=== PATIENT | female | born 1930 | race Caucasian/White ===

== ENCOUNTER 2016-03-12 17:53 | Inpatient (IN) | payer MEDICARE, BC ==
[~2016-03-12] VITALS: Ht 160 cm; Wt 59.0 kg
[~2016-03-12 17:53] MED LIST: ALEN70TA39 PO; ASPI81TA45 PO; CART120C2 PO; DOCU240C PO; ENAL5TAB PO; GLUCTAB PO; GLYB1TAB51 PO; HYDR-2768 PO; IBUP-238 PO; LORTA5 PO; NITR50CA27 PO; SIMV10 PO
[2016-03-12 17:59] VITALS: BP 196/98; PULSE 75; RESP 18; TEMP 98.4; O2SAT 97
[2016-03-12] MEDS ORDERED: ZOCO10TA PO (18:08)
[2016-03-12] MEDS ORDERED: METF500T PO (18:08)
[2016-03-12] MEDS ORDERED: IBUP800T23 PO (18:08)
[2016-03-12] MEDS ORDERED: AMIL5 PO (18:08)
[2016-03-12] MEDS ORDERED: ENAL5TAB PO (18:08)
[2016-03-12] MEDS ORDERED: ALEN1TAB48 PO (18:08)
[2016-03-12] MEDS ORDERED: TRAM50TA PO (18:08)
[2016-03-12] MEDS ORDERED: CART120C PO (18:08)
[2016-03-12] MEDS ORDERED: [UNRECOGNIZED DRUG - OTHER] (18:08)
[2016-03-12] MEDS ORDERED: BACL10TA PO (18:08)
[2016-03-12] MEDS ORDERED: OXYC-259 PO (18:08)
[2016-03-12] MEDS ORDERED: HYDR-4107 PO (18:08)
[2016-03-12] MEDS ORDERED: HYDR25TA5 PO (18:08)
[2016-03-12] MEDS ORDERED: GLYB5TAB3 PO (18:08)
[2016-03-12 18:09] VITALS: O2SAT 97
[2016-03-12] MEDS ORDERED: SODIUM CHLORIDE 0.9% FLUSH 5 ML FLUSH IVF PRN (18:15)
--- NOTE | 2016-03-12 18:17 | PD ---
HPI Chief Complaint: Fall Time Seen by Provider: 18:09 Travel History International Travel<30 days: No Contact w/Intl Traveler<30days: No Traveled to known affect area: No History of Present Illness HPI 85 year-old female presents to the emergency room via ambulance for evaluation of left hip pain. Patient was walking down a ramp at her garage and she tripped her cat and fell landing directly on her left hip before falling backwards onto her upper back. She reports immediate pain. When the ambulance came, she was lying on her back, crying, with both legs flexed. She received 8 mg of morphine en route. She protects x-ray shooting pain in her left groin radiating to the buttocks. Worse with any motion. She denies numbness or tingling but states the left lower extremity feels different than the right. Denies hitting her left consciousness. She also has left-sided chest wall pain from where she struck her chest on the concrete floor. Orthopedic surgeon as the Dre trujillo. She has history of osteoporosis, hypertension, diabetes, and hyperlipidemia. PFSH Past Medical History Cancer: No Cardiovascular Problems: No Diabetes: Yes (TYPE II) Patient Takes Glucophage: No Endocrine: Yes Gastrointestinal Disorders: Yes (DISTANT HIXTORY OF ULCER) Genitourinary: No Hepatitis: No Hiatal Hernia: No Hypertension: Yes Immune Disorder: No Medical other: No Musculoskeletal: Yes (ARTHRITIS, BACK PROBLEMS, HAIRLINE VERTEBRAL FRACTURES) Neurologic: No Psychiatric: No Reproductive: No Respiratory: No Thyroid Disease: No ?: Not Past Surgical History Abdominal Surgery: Yes (HYSTERECTOMY) AICD: No Cardiac Surgery: No Ear Surgery: No Endocrine Surgery: No Eye Surgery: No Genitourinary Surgery: Yes (BLADDER SUPPENSION X2 ) Gynecologic Surgery: Yes (CESEARIAN, D & C X 2) Joint Replacement: No Neurologic Surgery: No Oral Surgery: Yes (TONSILLECTOMY ) Pacemaker: No Thoracic Surgery: No Other Surgery: Yes Social History Alcohol Use: No Tobacco Use: No Substance Use: No Allergies-Medications (Allergen,Severity, Reaction): Coded Allergies: Sulfa (Verified Allergy, Severe, Hives, 06/18/13) ITCHING AND SWELLING Lortab (Verified Allergy, Intermediate, Nausea/Vomiting, 01/30/13) PT STATES SHE HAS TAKEN THIS WITHOUT PROBLEMS. STATES IS NOT ALLERGIC Oxycontin (Verified Allergy, Intermediate, Nausea/Vomiting, 06/18/13) Reported Meds & Prescriptions Reported Meds & Active Scripts Active Reported [surolax] Glyburide 5 Mg Tab 5 Mg PO DAILY Take with meals at the same time each day Tramadol (Tramadol HCl) 50 Mg Tab 50 Mg PO Q4H PRN Amiloride (Amiloride HCl) 5 Mg Tab 5 Mg PO DAILY Baclofen 10 Mg Tab 10 Mg PO Q8HR PRN Alendronate (Alendronate Sodium) 70 Mg Tab 70 Mg PO Q7D Metformin (Metformin HCl) 500 Mg Tab 500 Mg PO DAILY With a meal Ibuprofen 800 Mg Tab 800 Mg PO Q6HR PRN Hydrochlorothiazide 25 Mg Tab 25 Mg PO DAILY Zocor (Simvastatin) 10 Mg Tab 10 Mg PO DAILY Cartia Xt (Diltiazem ER 24 HR) 120 Mg Caper 120 Mg PO DAILY Enalapril (Enalapril Maleate) 5 Mg Tab 5 Mg PO DAILY Hydrocodone-Acetaminophen 5-300 Mg Tab 1 Tab PO Q4H PRN Oxycontin (Oxycodone HCl) 10 Mg Tab 10 Mg PO Q12HR Review of Systems Except as stated in HPI: all other systems reviewed are Neg Physical Exam Narrative GENERAL: Well-developed, well-nourished female in no acute distress. Afebrile. Crying in pain. SKIN: Warm and dry. No erythema or ecchymosis. HEAD: Atraumatic. Normocephalic. No chahal sign or raccoon eyes. EYES: PERRL, EOMI, no discharge or injection. No scleral icterus. NECK: Trachea midline. No JVD. No midline tenderness. Full range of motion. CARDIOVASCULAR: Regular rate and rhythm. No murmur appreciated. RESPIRATORY: No accessory muscle use. Clear to auscultation. Breath sounds equal bilaterally. No crackles, rales, wheezes, or rhonchi. EXTREMITY: Left lower extremity is neither shortened nor rotated. 1+ dorsalis pedis pulse. Very limited range of motion of the left hip secondary to pain. No obvious edema. Patient has full range of motion of the knee and left ankle, knee, and foot. Less than 2 second capillary refill distally. Distal sensation intact. PSYCHIATRIC: Appropriate mood and affect; insight and judgment normal. Data Data Last Documented VS Vital Signs Date Time Temp Pulse Resp B/P Pulse Ox O2 Delivery O2 Flow Rate FiO2 03/12/16 19:59 89 17 97 Room Air 03/12/16 19:59 142/89 03/12/16 18:09 2 03/12/16 17:59 98.4 Orders Complete Blood Count With Diff (03/12/16 18:06) Comprehensive Metabolic Panel (03/12/16 18:06) Prothrombin Time / Inr (Pt) (03/12/16 18:06) Act Partial Throm Time (Ptt) (03/12/16 18:06) Chest, Single Ap (03/12/16 18:06) Hip, Uni(Ap&Lat) W Ap Pelvis (03/12/16 18:06) Iv Access Insert/Monitor (03/12/16 18:06) Oximetry (03/12/16 18:06) Ecg Monitoring (03/12/16 18:06) Sodium Chloride 0.9% Flush (Ns Flush) (03/12/16 18:15) Morphine Inj (Morphine Inj) (03/12/16 20:00) Ketorolac Inj (Toradol Inj) (03/12/16 21:30) Admit Order (Ed Use Only) (03/12/16 21:20) Consult Orthopedic (03/12/16 ) Labs Laboratory Tests Test 03/12/16 18:11 White Blood Count 7.5 TH/MM3 Red Blood Count 4.34 MIL/MM3 Hemoglobin 13.5 GM/DL Hematocrit 38.1 % Mean Corpuscular Volume 87.9 FL Mean Corpuscular Hemoglobin 31.2 PG Mean Corpuscular Hemoglobin 35.5 % Concent Red Cell Distribution Width 12.9 % Platelet Count 275 TH/MM3 Mean Platelet Volume 7.8 FL Neutrophils (%) (Auto) 66.5 % Lymphocytes (%) (Auto) 18.5 % Monocytes (%) (Auto) 8.6 % Eosinophils (%) (Auto) 5.6 % Basophils (%) (Auto) 0.8 % Neutrophils # (Auto) 5.0 TH/MM3 Lymphocytes # (Auto) 1.4 TH/MM3 Monocytes # (Auto) 0.7 TH/MM3 Eosinophils # (Auto) 0.4 TH/MM3 Basophils # (Auto) 0.1 TH/MM3 CBC Comment DIFF FINAL Differential Comment Prothrombin Time 10.8 SEC Prothromb Time International 1.0 RATIO Ratio Activated Partial 25.2 SEC Thromboplast Time Sodium Level 139 MEQ/L Potassium Level 4.3 MEQ/L Chloride Level 101 MEQ/L Carbon Dioxide Level 29.2 MEQ/L Anion Gap 9 MEQ/L Blood Urea Nitrogen 17 MG/DL Creatinine 0.96 MG/DL Estimat Glomerular Filtration 56 ML/MIN Rate Random Glucose 195 MG/DL Calcium Level 9.0 MG/DL Total Bilirubin 0.3 MG/DL Aspartate Amino Transf 21 U/L (AST/SGOT) Alanine Aminotransferase 25 U/L (ALT/SGPT) Alkaline Phosphatase 113 U/L Total Protein 6.7 GM/DL Albumin 3.7 GM/DL [facility] Medical Decision Making Medical Screen Exam Complete: Yes Emergency Medical Condition: Yes Medical Record Reviewed: Yes Differential Diagnosis Hip fracture versus contusion versus abrasion versus muscle spasm Narrative Course 85-year-old female presents to the emergency room for evaluation of left anterior hip pain after trip and fall just prior to arrival. Patient slipped on a ramp and landed directly on her left hip. She reports immediate pain and difficulty ambulating. Reports paresthesias in the left lower extremity. Left lower extremity is neurovascularly intact with 1+ dorsalis pedis pulse and less than 2 second capillary refill distally. Distal sensation intact and patient has full range of motion of the ankle, knee, and foot. Left lower extremity is neither externally rotated nor shortened. She was given 8 mg morphine on ambulance and 4 mg morphine in the emergency room. Pain went from 10/10 down to 5/10. IV access established and basic labs obtained. CBC, CMP, and coags unremarkable. Chest x-ray is negative. X-ray of the left hip shows deformity of the superior pubic ramus which could represent an acute or old fracture. Given patient's mechanism of injury and focal tenderness, this is acute. I attempted to ambulate the patient but she was in too much pain. She was given a dose of Toradol and ice. I spoke to the orthopedist surgeon agricultural equipment salesperson, Dr. Montoya, who agrees to consultation. Patient will be admitted for physical therapy and orthopedic consultation. I spoke to the hospitalist on-call, Dr. Burkett, who agrees to admit this patient to her service. Physician Communication Physician Communication I spoke to Dr. Aguillon concerning patient's fractured pubic ramus. He agrees to consultation. I spoke to Dr. Mazal who agrees to accept patient to her service. Diagnosis Primary Impression: Fracture of left superior pubic ramus Qualified Code: S32.512A - Fracture of left superior pubic ramus, closed, initial encounter Condition: Stable Rebecca Corado Mar 12, 2016 18:16
[2016-03-12 18:25] LABS: BASOPHIL # 0.1 TH/MM3 (0-0.2); BASOPHIL % 0.8 % (0.0-2.0); EOSINOPHIL # 0.4 TH/MM3 (0-0.4); EOSINOPHIL % 5.6 % (0.0-4.0); HEMATOCRIT 38.1 % (35.0-46.0); HEMO FLAGS DIFF FINAL; LYMPH % 18.5 % (9.0-44.0); LYMPHOCYTE # 1.4 TH/MM3 (1.0-4.8); MEAN CELL VOLUME 87.9 FL (80.0-100.0); MEAN CORPUSCULAR HEMOGLOBIN 31.2 PG (27.0-34.0); MEAN CORPUSCULAR HGB CONC 35.5 % (32.0-36.0); MONO % 8.6 % (0.0-8.0); NEUT % 66.5 % (16.0-70.0); PLATELET COUNT 275 TH/MM3 (150-450); RED BLOOD COUNT 4.34 MIL/MM3 (4.00-5.30); RED CELL DISTRIBUTION WIDTH 12.9 % (11.6-17.2); WHITE BLOOD COUNT 7.5 TH/MM3 (4.0-11.0)
[2016-03-12 18:34] LABS: APTT (PATIENT) 25.2 SEC (24.3-30.1); PROTHROMBIN TIME - PATIENT 10.8 SEC (9.8-11.6)
[2016-03-12 18:46] LABS: ALKALINE PHOSPHATASE 113 U/L (45-117); ALT (GPT) 25 U/L (10-53); ANION GAP 9 MEQ/L (5-15); AST (GOT) 21 U/L (15-37); BICARBONATE 29.2 MEQ/L (21.0-32.0); BLOOD UREA NITROGEN 17 MG/DL (7-18); CHLORIDE 101 MEQ/L (98-107); GLOMERULAR FILTRATION RATE 56 ML/MIN (>89); POTASSIUM 4.3 MEQ/L (3.5-5.1); SODIUM (NA) 139 MEQ/L (136-145); TOTAL BILIRUBIN ADULT 0.3 MG/DL (0.2-1.0)
[2016-03-12 19:59] VITALS: BP 142/89; PULSE 86; RESP 17; O2SAT 99
[2016-03-12] MEDS ORDERED: MORPHINE SULFATE 4 MG/ML INJ IV PUSH ONE (20:00)
--- NOTE | 2016-03-12 20:19 | RADRPT ---
EXAM DATE/TIME: 03/12/2016 19:41 [facility] COMPARISON: No previous studies available for comparison. INDICATIONS : Left hip pain, fall. MEDICAL HISTORY : None. SURGICAL HISTORY : None. ENCOUNTER: Initial ACUITY: 1 day PAIN SCORE: 10/10 LOCATION: Left proximal hip FINDINGS: This lateral film in the superior pubic ramus. This could represent acute or old fracture. A fracture of the left hip. Moderate osteoarthritis left hip. CONCLUSION: Deformity left superior pubic ramus could represent an acute or old fracture. No fracture at the left hip. Solo Duvall MD on March 12, 2016 at 20:11 Board Certified Radiologist. This report was verified electronically.
--- NOTE | 2016-03-12 21:06 | RADRPT ---
EXAM DATE/TIME: 03/12/2016 19:39 [facility] COMPARISON: No previous studies available for comparison. INDICATIONS : Chest pain. MEDICAL HISTORY : None. SURGICAL HISTORY : None. ENCOUNTER: Initial ACUITY: 1 day PAIN SCORE: 7/10 LOCATION: Left upper chest FINDINGS: A single view of the chest demonstrates the lungs to be symmetrically aerated without evidence of mas s, infiltrate or effusion. The cardiomediastinal contours are unremarkable. Osseous structures are intact. CONCLUSION: No acute disease. Solo Duvall MD on March 12, 2016 at 21:05 Board Certified Radiologist. This report was verified electronically.
[2016-03-12] MEDS ORDERED: KETOROLAC TROMETHAMINE 30 MG/ML (IVP) VIAL IV PUSH ONE (21:30)
[2016-03-12] MEDS ORDERED: DEXTROSE 50% IN WATER 50 ML VIAL(D50) IV PUSH PRN (21:30)
[2016-03-12] MEDS ORDERED: ACETAMINOPHEN 325 MG TAB PO PRN (21:30)
[2016-03-12] MEDS ORDERED: MORPHINE SULFATE 4 MG/ML INJ IV PRN (21:30)
[2016-03-12] MEDS ORDERED: BACLOFEN 10 MG TAB PO PRN (21:30)
[2016-03-12] MEDS ORDERED: BISACODYL 10 MG SUPP PR PRN (21:30)
[2016-03-12] MEDS ORDERED: GLUCAGON 1 MG/ML VIAL OTHER PRN (21:30)
[2016-03-12] MEDS ORDERED: SODIUM CHLORIDE 0.9% FLUSH 5 ML FLUSH FLUSH PRN (21:30)
--- NOTE | 2016-03-12 21:40 | HHI.HP ---
[facility] Zayda Gray DO Admission Diagnosis left pubic ramus fracture Diagnoses: (1) Fracture of left superior pubic ramus Diagnosis: Principal (2) Intractable pain Diagnosis: Principal (3) HTN (hypertension) Diagnosis: Principal (4) DM (diabetes mellitus) Diagnosis: Principal Travel History International Travel<30 Days: No Contact w/Intl Traveler <30 Da: No Traveled to Known Affected Are: No History of Present Illness This is an 85-year-old female with a PMH of HTN, Osteoporosis and DM who is brought to the ER by EMS secondary to complaints of severe left hip and back pain following a fall. State she had closed her garage door and turned to walk up the ramp to her house when she lost her balance and fell on her left hip. No head trauma or LOC. On arrival, BP 196/98, HR 75, O2 sat 97% on RA, Afebrile. Currently BP 131/76, HR 78. CBC unremarkable. Chemistry essentially unremarkable except for GFR 56. CXR with no acute findings. Pelvic X-ray with deformity of the left superior pubic ramus, possibly acute or old fracture, no hip fracture. Injury non-op. Pt follows maykel Aguillon as outpatient, consulted by ER physician, will evaluate in am. Pt unable to ambulate at this time due to significant pain. Review of Systems Other ROS: 14 point review of systems otherwise negative. Past Family Social History Past Medical History PMH: HTN, Osteoporosis and DM Past Surgical History PAST SURGICAL HISTORY: Hysterectomy, Bladder Suspension, , Tonsillectomy Allergies: Coded Allergies: Sulfa (Verified Allergy, Severe, Hives, 06/18/13) ITCHING AND SWELLING Lortab (Verified Allergy, Intermediate, Nausea/Vomiting, 01/30/13) PT STATES SHE HAS TAKEN THIS WITHOUT PROBLEMS. STATES IS NOT ALLERGIC Oxycontin (Verified Allergy, Intermediate, Nausea/Vomiting, 06/18/13) Family History PAST FAMILY HISTORY: Reviewed. No h/o DM or CAD Social History PAST SOCIAL HISTORY: Negative for alcohol, tobacco or drugs. Physical Exam Vital Signs Vital Signs Date Time Temp Pulse Resp B/P Pulse Ox O2 Delivery O2 Flow Rate FiO2 03/12/16 19:59 89 17 97 Room Air 03/12/16 19:59 86 17 142/89 99 Room Air 03/12/16 18:09 97 Nasal Cannula 2 03/12/16 18:09 90 18 98 Room Air 03/12/16 17:59 98.4 75 18 196/98 97 Physical Exam PE: GENERAL: Elderly white female in no acute distress. at bedside. HEENT: PERRLA, EOMI. No scleral icterus or conjunctival pallor. No lid lag or facial droop. CARDIOVASCULAR: Regular rate and rhythm. No obvious murmurs to auscultation. No chest tenderness to palpation. RESPIRATORY: No obvious rhonchi or wheezing. Clear to auscultation. Breath sounds equal bilaterally. GASTROINTESTINAL: Abdomen soft, non-tender, nondistended. BS normal. MUSCULOSKELETAL: Extremities without clubbing, cyanosis, or edema. No obvious deformities. Left hip/groin tenderness to palpation. Decreased ROM due to injury. Pulses intact. NEUROLOGICAL: Awake, alert and oriented x4. No focal neurologic deficits. Moving both upper and lower extremities spontaneously. Laboratory Laboratory Tests Test 03/12/16 18:11 White Blood Count 7.5 Red Blood Count 4.34 Hemoglobin 13.5 Hematocrit 38.1 Mean Corpuscular Volume 87.9 Mean Corpuscular Hemoglobin 31.2 Mean Corpuscular Hemoglobin 35.5 Concent Red Cell Distribution Width 12.9 Platelet Count 275 Mean Platelet Volume 7.8 Neutrophils (%) (Auto) 66.5 Lymphocytes (%) (Auto) 18.5 Monocytes (%) (Auto) 8.6 Eosinophils (%) (Auto) 5.6 Basophils (%) (Auto) 0.8 Neutrophils # (Auto) 5.0 Lymphocytes # (Auto) 1.4 Monocytes # (Auto) 0.7 Eosinophils # (Auto) 0.4 Basophils # (Auto) 0.1 CBC Comment DIFF FINAL Differential Comment Prothrombin Time 10.8 Prothromb Time International 1.0 Ratio Activated Partial 25.2 Thromboplast Time Sodium Level 139 Potassium Level 4.3 Chloride Level 101 Carbon Dioxide Level 29.2 Anion Gap 9 Blood Urea Nitrogen 17 Creatinine 0.96 Estimat Glomerular Filtration 56 Rate Random Glucose 195 Calcium Level 9.0 Total Bilirubin 0.3 Aspartate Amino Transf 21 (AST/SGOT) Alanine Aminotransferase 25 (ALT/SGPT) Alkaline Phosphatase 113 Total Protein 6.7 Albumin 3.7 Result Diagram: 03/12/16181003/12/161810 Assessment and Plan Problem List: (1) Fracture of left superior pubic ramus ICD Code: S32.512A Status: Acute (2) Intractable pain ICD Code: R52 Status: Acute (3) HTN (hypertension) ICD Code: I10 Status: Acute (4) DM (diabetes mellitus) ICD Code: E11.9 Status: Acute Assessment and Plan A/P: 1. Pelvic Fx: s/p mechanical trip and fall, no LOC or head trauma, Pelvic X- ray w/ deformity of left superior pubic ramus, possibly acute or old fracture, no fracture of left hip, images reviewed by me. Follows w/ Dr. Aguillon as outpatient, consult placed by ER physician, will eval in am. Injury Non-op. Pain control, PT for eval/tx. 2. Intractable Pain: c/o severe left hip/groin pain following fall, minimally improved at this time, significant difficulty w/ ambulation due to pain. Will admit for pain control. PT for eval/tx as above. 3. HTN: BP on arrival 190's systolic, likely compounded by pain. BP currently 131/76, HR 78. Will monitor. 4. DM: Sliding scale w/ Accu-Cheks. Resume home Metformin 5. DVT Prophylaxis: SCD/Teds. 6. Social work for d/c planning as needed. 7. Case discussed w/ ER physician at length. Problem Qualifiers (1) Fracture of left superior pubic ramus: Qualified Code: S32.512A - Fracture of left superior pubic ramus, closed, initial encounter Caridad Burkett MD Mar 12, 2016 21:40
[2016-03-12 22:19] VITALS: BP 131/76; PULSE 78; RESP 15; O2SAT 96
[2016-03-13 00:40] VITALS: BP 160/83; PULSE 94; RESP 18; TEMP 96.8; O2SAT 97
[2016-03-13 04:35] VITALS: BP 123/62; PULSE 83; RESP 17; TEMP 97.9; O2SAT 95
[2016-03-13 05:33] LABS: AUTOMATED NEUTROPHIL # 6.8 TH/MM3 (1.8-7.7); BASOPHIL % 0.6 % (0.0-2.0); EOSINOPHIL # 0.1 TH/MM3 (0-0.4); EOSINOPHIL % 1.6 % (0.0-4.0); HEMATOCRIT 36.3 % (35.0-46.0); HEMO FLAGS DIFF FINAL; LYMPH % 7.4 % (9.0-44.0); LYMPHOCYTE # 0.6 TH/MM3 (1.0-4.8); MEAN CORPUSCULAR HEMOGLOBIN 31.3 PG (27.0-34.0); MEAN CORPUSCULAR HGB CONC 35.1 % (32.0-36.0); MONO % 5.6 % (0.0-8.0); NEUT % 84.8 % (16.0-70.0); PLATELET COUNT 255 TH/MM3 (150-450); RED BLOOD COUNT 4.07 MIL/MM3 (4.00-5.30); RED CELL DISTRIBUTION WIDTH 12.9 % (11.6-17.2)
[2016-03-13 06:03] LABS: ALT (GPT) 23 U/L (10-53); ANION GAP 6 MEQ/L (5-15); AST (GOT) 15 U/L (15-37); BICARBONATE 29.7 MEQ/L (21.0-32.0); BLOOD UREA NITROGEN 20 MG/DL (7-18); CHLORIDE 103 MEQ/L (98-107); GLOMERULAR FILTRATION RATE 64 ML/MIN (>89); POTASSIUM 4.7 MEQ/L (3.5-5.1); SODIUM (NA) 139 MEQ/L (136-145)
[2016-03-13 06:05] LABS: ALKALINE PHOSPHATASE 80 U/L (45-117); TOTAL BILIRUBIN ADULT 0.4 MG/DL (0.2-1.0)
[2016-03-13] MEDS: ACETAMINOPHEN/HYDROcodone 325 MG/5 MG TAB PO PRN ×3 (07:29→20:09)
[2016-03-13] MEDS: INSULIN ASPART SUPPLEMENTAL SCALE SQ SCH ×4 (07:29→20:18)
[2016-03-13 08:00] VITALS: BP 123/60; PULSE 75; RESP 16; TEMP 96.6; O2SAT 95
[2016-03-13] MEDS: glyBURIDE 5 MG TAB PO SCH (08:42)
[2016-03-13] MEDS: DILTIAZEM-CD 120 MG CAP ER PO SCH (08:42)
[2016-03-13] MEDS: ENALAPRIL MALEATE 5 MG TAB PO SCH (08:42)
[2016-03-13] MEDS: HYDROCHLOROTHIAZIDE 25 MG TAB PO SCH (08:43)
[2016-03-13] MEDS: aMILoride HCL 5 MG TAB PO SCH (08:43)
[2016-03-13] MEDS: PRAVASTATIN SOD 20 MG TAB PO SCH (08:43)
[2016-03-13] MEDS: SODIUM CHLORIDE 0.9% FLUSH 5 ML FLUSH FLUSH SCH ×2 (08:45→20:09)
[2016-03-13] MEDS ORDERED: metFORMIN HCL 500 MG TAB PO SCH (09:00)
[2016-03-13 12:00] VITALS: BP 105/53; PULSE 72; RESP 17; TEMP 96.2; O2SAT 94
--- NOTE | 2016-03-13 13:05 | HHI.PR ---
Subjective Remarks Laying in bed comfortably, discussed with her and her She still has pain, no nausea or vomiting no fever or chills Also discussed with disease case manager rn, patient qualify for inpatient base on her need for pain medication and her pelvic fracture, and she definitely will need rehabilitation at discharge Objective Vitals Vital Signs Date Time Temp Pulse Resp B/P Pulse Ox O2 Delivery O2 Flow Rate FiO2 03/13/16 08:00 96.6 75 16 123/60 95 03/13/16 04:35 97.9 83 17 123/62 95 03/13/16 00:40 96.8 94 18 160/83 97 03/12/16 22:22 15 03/12/16 22:19 78 15 131/76 96 Room Air 03/12/16 19:59 89 17 97 Room Air 03/12/16 19:59 86 17 142/89 99 Room Air 03/12/16 18:09 97 Nasal Cannula 2 03/12/16 18:09 90 18 98 Room Air 03/12/16 17:59 98.4 75 18 196/98 97 I/O 03/12/16 03/12/16 03/12/16 03/13/16 03/13/16 03/13/16 07:00 15:00 23:00 07:00 15:00 23:00 Intake Total 120 ml Output Total 100 ml Balance -100 ml 120 ml Intake Oral 120 ml Output Urine Total 100 ml # Voids 1 3 # Bowel Movements 0 Result Diagram: 03/13/16 0437 03/13/16 0437 Imaging Last Impressions Hip and Pelvis X-Ray 03/12/161805 Signed Impressions: Service Date/Time: Saturday, March 12, 2016 19:41 - CONCLUSION: Deformity left superior pubic ramus could represent an acute or old fracture. No fracture at the left hip. Solo Duvall MD Chest X-Ray 03/12/161805 Signed Impressions: Service Date/Time: Saturday, March 12, 2016 19:39 - CONCLUSION: No acute disease. Solo Duvall MD Objective Remarks GENERAL: This is a well-nourished, well-developed patient, in no apparent distress. SKIN: No rashes, warm and dry HEAD: Atraumatic. Normocephalic. EYES: Pupils equal round and reactive. Extraocular motions intact. No scleral icterus. ENT: Nose without bleeding, or drainage, Airway patent. NECK: Trachea midline. Supple CARDIOVASCULAR: Regular rate and rhythm without murmurs, gallops, or rubs. RESPIRATORY: Fair air entry bilaterally. No wheezes, rales, or rhonchi. GASTROINTESTINAL: Abdomen soft, non-tender, nondistended. Positive bowel sounds MUSCULOSKELETAL: Extremities without clubbing, cyanosis, or edema. Pedal pulses appreciated NEUROLOGICAL: Awake and alert. Moves all extremity. Normal speech.no focal neurological deficit A/P Problem List: (1) Fracture of left superior pubic ramus ICD Code: S32.512A Status: Acute (2) Intractable pain ICD Code: R52 Status: Acute (3) HTN (hypertension) ICD Code: I10 Status: Acute (4) DM (diabetes mellitus) ICD Code: E11.9 Status: Acute Assessment and Plan - Pelvic Fx: s/p mechanical trip and fall, no LOC or head trauma, Pelvic X- ray w/ deformity of left superior pubic ramus, possibly acute or old fracture, no fracture of left hip, images reviewed by me. Follows w/ Dr. Aguillon as outpatient, awaiting ortho consult most likely nonoperable, continue pain control, PT for eval/tx. - Intractable Pain: c/o severe left hip/groin pain following fall, minimally improved at this time, significant difficulty w/ ambulation due to pain. - HTN: BP on arrival 190's systolic, likely compounded by pain. BP currently 131/76, HR 78. Will monitor. - DM: Sliding scale w/ Accu-Cheks. Hold Metformin - DVT Prophylaxis: SCD/Teds. - Social work for d/c planning as needed. Change to inpatient admission vasa on discussion with disease case manager rn, patient is qualified Problem Qualifiers (1) Fracture of left superior pubic ramus: Qualified Code: S32.512A - Fracture of left superior pubic ramus, closed, initial encounter Shelly Saxena MD Mar 13, 2016 13:05
[2016-03-13] MEDS: ONDANSETRON HCL 4 MG/2 ML VIAL IVP PRN ×2 (15:31)
[2016-03-13 16:00] VITALS: BP 121/57; PULSE 73; RESP 17; TEMP 96.6; O2SAT 94
[2016-03-13 20:00] VITALS: BP 104/50; PULSE 89; RESP 17; TEMP 98.7; O2SAT 96
[2016-03-14 00:15] VITALS: BP 96/52; PULSE 83; RESP 17; TEMP 98.8; O2SAT 95
[2016-03-14] MEDS: ONDANSETRON HCL 4 MG/2 ML VIAL IVP PRN ×2 (02:00→12:01)
[2016-03-14 05:15] VITALS: BP 104/56; PULSE 76; RESP 17; TEMP 98.1; O2SAT 94
[2016-03-14] MEDS: ACETAMINOPHEN/HYDROcodone 325 MG/5 MG TAB PO PRN ×4 (06:31→21:13)
[2016-03-14] MEDS: INSULIN ASPART SUPPLEMENTAL SCALE SQ SCH ×4 (06:43→21:12)
--- NOTE | 2016-03-14 08:50 | MB ---
cc: MURALI MCCABE M.D. DATE OF CONSULTATION: 03/13/2016 DATE OF : 1930 CHIEF COMPLAINT Fall with left hip pain. HISTORY OF PRESENT ILLNESS This is an 85-year-old white female who presented to the emergency department yesterday via ambulance with complaints of left hip pain. The patient states she was walking from her garage when she fell backward onto her left hip. The patient reports this occurred prior to her arrival to the emergency department. The patient had immediate pain to the left hip and was unable to stand. The patient describes her pain as being localized about the left groin. Movement tends to exacerbate her symptoms. Rest helps alleviate her symptoms. The patient does report a sharp pain which is moderate to severe in intensity with movement. Pain does radiate to the left buttock region. The patient denies any tingling or numbness about the left lower extremity. The patient denies any history of pelvic or left hip injury. The patient denies any loss of consciousness. The patient does have a history of osteoporosis, hypertension, diabetes, and hyperlipidemia. REVIEW OF SYSTEMS The review of systems is negative x12 except for what is stated in the HPI. PAST MEDICAL HISTORY 1. Type 2 diabetes. 2. Stomach ulcer. 3. Hypertension. 4. Arthritis with compression fractures. 5. Hyperlipidemia. 6. Osteoporosis. PAST SURGICAL HISTORY 1. Hysterectomy. 2. Bladder suspension. 3. section. 4. Two D&Cs. 5. Tonsillectomy. 6. Appendectomy. 7. Two spine surgeries. SOCIAL HISTORY The patient denies any use of alcohol, tobacco, or drugs. ALLERGIES 1. SULFA. 2. LORTAB. 3. OXYCONTIN. MEDICATIONS Active medications include: 1. Glyburide 5 mg by mouth daily. 2. Tramadol 50 mg q.4h. p.r.n. 3. Amiloride 5 mg p.o. daily. 4. Baclofen 10 mg by mouth q.8h. p.r.n. 5. Alendronate 70 mg by mouth q.7 days. 6. Metformin 500 mg by mouth with meals. 7. Ibuprofen 800 mg by mouth q.6h. p.r.n. 8. Hydrochlorothiazide 25 mg by mouth daily. 9. Zocor 10 mg by mouth daily. 10.Cartia XT 120 mg by mouth daily. 11.Allopurinol 5 mg by mouth daily. 12.Hydrocodone with acetaminophen 5 mg, one tablet by mouth q.4h. p.r.n. 13.Oxycodone 10 mg by mouth q.12h. PHYSICAL EXAMINATION VITAL SIGNS: Temperature 96.2, pulse 72, respirations 17, blood pressure 105/53, pulse ox 94% on room air. GENERAL: The patient is a well-developed, well-nourished female in no acute distress. SKIN: Warm and dry. HEAD: Head is atraumatic and normocephalic. EYES: PERRLA with extraocular movements intact. NECK: Supple. Trachea is midline. CARDIOVASCULAR: Regular rate and rhythm. PULMONARY: Symmetric chest wall rise with no labored breathing. MUSCULOSKELETAL: The patient moves the bilateral ankles, knees and right hip within normal limits. There is no tenderness to palpation over these areas. The patient does have some tenderness to palpation about the left hip and has tenderness with internal and external rotation of the left hip. The patient does have some mild limitation with rotation of the hip. There is no tenderness over the lateral aspect of the hip. All the patient's tenderness is localized over the left groin and buttock. The patient moves the bilateral wrist, elbows and shoulders within normal limits and has no tenderness to palpation. PSYCHIATRIC: The patient has appropriate mood and affect. NEUROLOGIC: The patient is alert and oriented x3. The patient has appropriate speech and there are no obvious deficits with the cranial nerves. LABORATORY DATA Labs taken on 03/13/2016 show white blood cell count 8, hemoglobin 12.7, hematocrit 36.3, platelets 255. Creatinine is 0.85, random glucose 245. INR is 1. X-RAYS X-ray taken of the left hip AP and lateral views with AP of the pelvis on 03/12/2016 read as deformity of the left superior pubic ramus which could represent an acute or old fracture. There is no fracture of the left hip. Upon reviewing the above images I do feel that the patient has both a superior and inferior left pubic ramus fracture. There is minimal displacement. I also agree that there is no obvious fracture about the left hip. IMPRESSION 1. Left superior and inferior pubic ramus fractures. 2. Left hip contusion. MEDICAL DECISION-MAKING Based on today's x-rays I do feel that the fracture pattern of the superior and inferior pubic rami are stable. We will proceed with conservative management for these fractures. I had a lengthy discussion with the patient regarding time frames and normal clinical progression of these types of fractures. The patient will be weightbearing as tolerated on the left lower extremity. The patient should use a cane or walker for assistance initially until her pain improves. We will continue to follow this fracture pattern closely over the next several weeks and months. I have reviewed the above impression and plan of care with Dr. Mccabe and he agrees with this documentation. Dictated by: TRUMAN Bowers MD PILAR Del Toro/SYMONE /1:58 PM /8:50 AM
[2016-03-14] MEDS: DILTIAZEM-CD 120 MG CAP ER PO SCH (09:43)
[2016-03-14] MEDS: SODIUM CHLORIDE 0.9% FLUSH 5 ML FLUSH FLUSH SCH ×2 (09:43→21:12)
[2016-03-14] MEDS: glyBURIDE 5 MG TAB PO SCH (09:43)
[2016-03-14] MEDS: PRAVASTATIN SOD 20 MG TAB PO SCH (09:43)
[2016-03-14] MEDS: HYDROCHLOROTHIAZIDE 25 MG TAB PO SCH (09:43)
[2016-03-14] MEDS: ENALAPRIL MALEATE 5 MG TAB PO SCH (09:43)
[2016-03-14] MEDS: aMILoride HCL 5 MG TAB PO SCH (09:43)
[2016-03-14 12:00] VITALS: BP 136/67; PULSE 78; RESP 16; TEMP 98.4; O2SAT 96
--- NOTE | 2016-03-14 13:41 | HHI.PR ---
Subjective Remarks Sitting on the chair she stated she is trying to walk around No fever or chills, no chest pain or short of breath Plan for SNF tomorrow Objective Vitals Vital Signs Date Time Temp Pulse Resp B/P Pulse Ox O2 Delivery O2 Flow Rate FiO2 03/14/16 05:15 98.1 76 17 104/56 94 03/14/16 00:15 98.8 83 17 96/52 95 03/13/16 20:00 98.7 89 17 104/50 96 03/13/16 16:00 96.6 73 17 121/57 94 I/O 03/13/16 03/13/16 03/13/16 03/14/16 03/14/16 03/14/16 07:00 15:00 23:00 07:00 15:00 23:00 Intake Total 120 ml 720 ml 480 ml 240 ml Output Total 750 ml Balance 120 ml -30 ml 480 ml 240 ml Intake Oral 120 ml 720 ml 480 ml 240 ml Output Urine Total 750 ml # Voids 3 4 2 1 # Bowel Movements 0 0 0 Result Diagram: 03/13/1643603/13/16436 Objective Remarks GENERAL: This is a well-nourished, well-developed patient, in no apparent distress. SKIN: No rashes, warm and dry HEAD: Atraumatic. Normocephalic. EYES: Pupils equal round and reactive. Extraocular motions intact. No scleral icterus. ENT: Nose without bleeding, or drainage, Airway patent. NECK: Trachea midline. Supple CARDIOVASCULAR: Regular rate and rhythm without murmurs, gallops, or rubs. RESPIRATORY: Fair air entry bilaterally. No wheezes, rales, or rhonchi. GASTROINTESTINAL: Abdomen soft, non-tender, nondistended. Positive bowel sounds MUSCULOSKELETAL: Extremities without clubbing, cyanosis, or edema. Pedal pulses appreciated NEUROLOGICAL: Awake and alert. Moves all extremity. Normal speech.no focal neurological deficit A/P Problem List: (1) Fracture of left superior pubic ramus ICD Code: S32.512A Status: Acute (2) Intractable pain ICD Code: R52 Status: Acute (3) HTN (hypertension) ICD Code: I10 Status: Acute (4) DM (diabetes mellitus) ICD Code: E11.9 Status: Acute Assessment and Plan March 14: Continue current care, pain management, rehabilitation in a.m. - Pelvic Fx: s/p mechanical trip and fall, no LOC or head trauma, Pelvic X- ray w/ deformity of left superior pubic ramus, possibly acute or old fracture, no fracture of left hip, images reviewed by me. Follows w/ Dr. Augillon as outpatient, awaiting ortho consult most likely nonoperable, continue pain control, PT for eval/tx. - Intractable Pain: c/o severe left hip/groin pain following fall, minimally improved at this time, significant difficulty w/ ambulation due to pain. - HTN: BP on arrival 190's systolic, likely compounded by pain. BP currently 131/76, HR 78. Will monitor. - DM: Sliding scale w/ Accu-Cheks. Hold Metformin - DVT Prophylaxis: SCD/Teds. -Discussed with case resolution specialist, plan for rehabilitation placement in a.m. Problem Qualifiers (1) Fracture of left superior pubic ramus: Qualified Code: S32.512A - Fracture of left superior pubic ramus, closed, initial encounter Shelly Saxena MD Mar 14, 2016 13:40
[2016-03-14 16:27] VITALS: BP 99/44; PULSE 78; RESP 16; TEMP 97.7; O2SAT 96
[2016-03-14 19:17] VITALS: BP 102/49; PULSE 78; RESP 14; TEMP 97; O2SAT 96
[2016-03-14 19:38] VITALS: BP_SYST 102; BP_SYST 107; BP_DIAS 49; BP_DIAS 60; PULSE 79; PULSE 88; RESP 14; RESP 16; TEMP 97; TEMP 97.7; O2SAT 94
[2016-03-15 00:33] VITALS: BP 95/45; PULSE 72; RESP 18; TEMP 98.1; O2SAT 96
[2016-03-15] MEDS ORDERED: MAGNESIUM HYDROXIDE SUSP 30 ML CUP PO PRN (02:00)
[2016-03-15] MEDS: ACETAMINOPHEN/HYDROcodone 325 MG/5 MG TAB PO PRN ×3 (05:09→18:21)
[2016-03-15] MEDS: INSULIN ASPART SUPPLEMENTAL SCALE SQ SCH ×3 (06:09→16:28)
[2016-03-15 08:00] VITALS: BP 110/67; PULSE 80; RESP 18; TEMP 97.7; O2SAT 94
[2016-03-15] MEDS: ENALAPRIL MALEATE 5 MG TAB PO SCH (09:00)
[2016-03-15] MEDS: DILTIAZEM-CD 120 MG CAP ER PO SCH (09:20)
[2016-03-15] MEDS: aMILoride HCL 5 MG TAB PO SCH (09:20)
[2016-03-15] MEDS: glyBURIDE 5 MG TAB PO SCH (09:20)
[2016-03-15] MEDS: PRAVASTATIN SOD 20 MG TAB PO SCH (09:20)
[2016-03-15] MEDS: HYDROCHLOROTHIAZIDE 25 MG TAB PO SCH (09:20)
[2016-03-15] MEDS: SODIUM CHLORIDE 0.9% FLUSH 5 ML FLUSH FLUSH SCH (09:24)
[2016-03-15 12:00] VITALS: BP 115/63; PULSE 82; RESP 18; TEMP 97.4; O2SAT 95
[2016-03-15] MEDS ORDERED: HYDR-3516 PO (15:04)
--- NOTE | 2016-03-15 15:06 | HHI.DS ---
Discharge Summary Admission Date Mar 14, 2016 at 17:03 Discharge Date: Mar 15, 2016 Admitting Diagnosis left pubic ramus fracture (1) Fracture of left superior pubic ramus ICD Code: S32.512A (2) Intractable pain ICD Code: R52 (3) HTN (hypertension) ICD Code: I10 (4) DM (diabetes mellitus) ICD Code: E11.9 Procedures None Brief History - From Admission This is an 85-year-old female with a PMH of HTN, Osteoporosis and DM who is brought to the ER by EMS secondary to complaints of severe left hip and back pain following a fall. State she had closed her garage door and turned to walk up the ramp to her house when she lost her balance and fell on her left hip. No head trauma or LOC. On arrival, BP 196/98, HR 75, O2 sat 97% on RA, Afebrile. Currently BP 131/76, HR 78. CBC unremarkable. Chemistry essentially unremarkable except for GFR 56. CXR with no acute findings. Pelvic X-ray with deformity of the left superior pubic ramus, possibly acute or old fracture, no hip fracture. Injury non-op. Pt follows bhanu/ Dr. Aguillon as outpatient, consulted by ER physician, will evaluate in am. Pt unable to ambulate at this time due to significant pain. CBC/BMP: 03/13/16 0437 03/13/16 0437 Significant Findings Laboratory Tests Test 03/12/16 03/13/16 18:11 04:37 Monocytes (%) (Auto) 8.6 % (0.0-8.0) Eosinophils (%) (Auto) 5.6 % (0.0-4.0) Estimat Glomerular Filtration 56 ML/MIN (>89) 64 ML/MIN (>89) Rate Random Glucose 195 MG/DL 245 MG/DL (74-106) (74-106) Neutrophils (%) (Auto) 84.8 % (16.0-70.0) Lymphocytes (%) (Auto) 7.4 % (9.0-44.0) Lymphocytes # (Auto) 0.6 TH/MM3 (1.0-4.8) Blood Urea Nitrogen 20 MG/DL (7-18) Total Protein 6.1 GM/DL (6.4-8.2) PE at Discharge GENERAL: This is a well-nourished, well-developed patient, in no apparent distress. SKIN: No rashes, warm and dry HEAD: Atraumatic. Normocephalic. EYES: Pupils equal round and reactive. Extraocular motions intact. No scleral icterus. ENT: Nose without bleeding, or drainage, Airway patent. NECK: Trachea midline. Supple CARDIOVASCULAR: Regular rate and rhythm without murmurs, gallops, or rubs. RESPIRATORY: Fair air entry bilaterally. No wheezes, rales, or rhonchi. GASTROINTESTINAL: Abdomen soft, non-tender, nondistended. Positive bowel sounds MUSCULOSKELETAL: Extremities without clubbing, cyanosis, or edema. Pedal pulses appreciated NEUROLOGICAL: Awake and alert. Moves all extremity. Normal speech.no focal neurological deficit Hospital Course 85 years old female admitted for Pelvic Fx: s/p mechanical trip and fall, no LOC or head trauma, Pelvic X-ray w/ deformity of left superior pubic ramus, possibly acute or old fracture, no fracture of left hip, . Follows w/ Dr. Aguillon as outpatient, ortho consult appreciated nonoperable fracture, pain management , PT, patient will be transferred to rehabilitation And had Intractable Pain: c/o severe left hip/groin pain following fall, minimally improved at this time, significant difficulty w/ ambulation due to pain. Regarding HTN: BP on arrival 190's systolic, likely compounded by pain. BP currently 131/76, HR 78. Will monitor. Regarding DM: Sliding scale w/ Accu-Cheks. Hold Metformin Guarding DVT Prophylaxis: SCD/Teds. [id number] encounter performed with the patient on discharge day, as well as physical exam, summary of hospitalization course and postdischarge plan has been D/W the patient. D/W nurse D/W lead case manager. Discharge medications reviewed and printed and signed, post discharge follow up visit with PCP and other specialist as well as Brief hospital course and discharge summary has been placed. Pt Condition on Discharge: Fair Discharge Disposition: Disch w/ Home Health Serv Discharge Time: > 30 minutes Discharge Instructions DIET: Follow Instructions for: Heart Healthy Diet, Diabetic Diet Activities you can perform: See Additionl Instruction Other Activity Instructions: Per ortho and PT recommendation New Medications: Hydrocodone-Acetaminophen (Hydrocodone-Acetaminophen) 5-325 mg Tab 1 TAB PO Q4H PRN PAIN SCALE 3 TO 5 #25 TAB Continued Medications: Alendronate (Alendronate) 70 Mg Tab 70 MG PO Q7D Osteporosis Treatment #4 Ref 0 TAB Amiloride (Amiloride) 5 Mg Tab 5 MG PO DAILY Blood Pressure Management #30 Ref 0 TAB Baclofen (Baclofen) 10 Mg Tab 10 MG PO Q8HR PRN MUSCLE SPASM Ref 0 TAB Diltiazem ER 24 HR (Cartia Xt) 120 Mg Caper 120 MG PO DAILY #30 Ref 0 CAP Enalapril (Enalapril) 5 Mg Tab 5 MG PO DAILY #30 Ref 0 TAB Glyburide (Glyburide) 5 Mg Tab 5 MG PO DAILY Take with meals at the same time each day Blood Sugar Management # 30 Ref 0 TAB Hydrochlorothiazide (Hydrochlorothiazide) 25 Mg Tab 25 MG PO DAILY #30 Ref 0 TAB Ibuprofen (Ibuprofen) 800 Mg Tab 800 MG PO Q6HR PRN PAIN #40 Ref 0 TAB Metformin (Metformin) 500 Mg Tab 500 MG PO DAILY With a meal Blood Sugar Management #30 Ref 0 TAB Simvastatin (Zocor) 10 Mg Tab 10 MG PO DAILY Cholesterol Management #30 Ref 0 TAB Shelly Saxena MD Mar 15, 2016 15:06
--- NOTE | 2016-03-15 15:07 | HHI.PR ---
Subjective Remarks Patient doing well stable for discharge to rehabilitation Objective Vitals Vital Signs Date Time Temp Pulse Resp B/P Pulse Ox O2 Delivery O2 Flow Rate FiO2 03/15/16 12:00 97.4 82 18 115/63 95 03/15/16 10:20 18 03/15/16 08:00 97.7 80 18 110/67 94 03/15/16 00:33 98.1 72 18 95/45 96 03/14/16 19:38 97.0 79 14 102/49 94 03/14/16 19:17 97.0 78 14 102/49 96 03/14/16 16:27 97.7 78 16 99/44 96 I/O 03/14/16 03/14/16 03/14/16 03/15/16 03/15/16 03/15/16 07:00 15:00 23:00 07:00 15:00 23:00 Intake Total 240 ml 500 ml 690 ml Balance 240 ml 500 ml 690 ml Intake Oral 240 ml 500 ml 690 ml # Voids 1 3 6 # Bowel Movements 0 0 0 Result Diagram: 03/13/1643603/13/16436 Objective Remarks GENERAL: This is a well-nourished, well-developed patient, in no apparent distress. SKIN: No rashes, warm and dry HEAD: Atraumatic. Normocephalic. EYES: Pupils equal round and reactive. Extraocular motions intact. No scleral icterus. ENT: Nose without bleeding, or drainage, Airway patent. NECK: Trachea midline. Supple CARDIOVASCULAR: Regular rate and rhythm without murmurs, gallops, or rubs. RESPIRATORY: Fair air entry bilaterally. No wheezes, rales, or rhonchi. GASTROINTESTINAL: Abdomen soft, non-tender, nondistended. Positive bowel sounds MUSCULOSKELETAL: Extremities without clubbing, cyanosis, or edema. Pedal pulses appreciated NEUROLOGICAL: Awake and alert. Moves all extremity. Normal speech.no focal neurological deficit Procedures None A/P Problem List: (1) Fracture of left superior pubic ramus ICD Code: S32.512A Status: Acute (2) Intractable pain ICD Code: R52 Status: Acute (3) HTN (hypertension) ICD Code: I10 Status: Acute (4) DM (diabetes mellitus) ICD Code: E11.9 Status: Acute Assessment and Plan March 14: Continue current care, pain management, rehabilitation in a.m. 03/15/16: Stable for discharge to rehabilitation on A/P: - Pelvic Fx: s/p mechanical trip and fall, no LOC or head trauma, Pelvic X- ray w/ deformity of left superior pubic ramus, possibly acute or old fracture, no fracture of left hip, images reviewed by me. Follows w/ Dr. Aguillon as outpatient, awaiting ortho consult most likely nonoperable, continue pain control, PT for eval/tx. - Intractable Pain: c/o severe left hip/groin pain following fall, minimally improved at this time, significant difficulty w/ ambulation due to pain. - HTN: BP on arrival 190's systolic, likely compounded by pain. BP currently 131/76, HR 78. Will monitor. - DM: Sliding scale w/ Accu-Cheks. Hold Metformin - DVT Prophylaxis: SCD/Teds. -Discussed with nurse outreach case manager, plan for rehabilitation placement in a.m. Problem Qualifiers (1) Fracture of left superior pubic ramus: Qualified Code: S32.512A - Fracture of left superior pubic ramus, closed, initial encounter Shelly Saxena MD Mar 15, 2016 15:07
--- NOTE | 2016-03-15 15:27 | HHI.FF ---
Face to Face Verification Diagnosis: (1) DM (diabetes mellitus) (2) Fracture of left superior pubic ramus (3) Intractable pain Physical Therapy Order: Evaluate and Treat Occupational Therapy Order: Evaluate and Treat Home Health Nursing Order: Medical education Nursing assessment with vital signs I have seen patient Vandana Hsieh on 03/15/16. My clinical findings support the need for the requested home health care services because: Ltd mobility - disease progression Deconditioned w/ increased weakness I certify that my clinical findings support that this patient is homebound because: Unsteady gait/balance Unsafe to leave home unassisted Shelly Saxena MD Mar 15, 2016 15:27
[2016-03-15 15:32] VITALS: BP 96/47; PULSE 65; RESP 15; TEMP 96.9; O2SAT 96
== END 2016-03-15 18:40 | disposition home health service (06) | DRG 536 ==
LOC: NEPA 17:53 → NEDA 21:22 → N06B 23:00 → OBSVTOIN 03-14 17:03
PROVIDERS: ADMIT Hospitalist; ATTEND Hospitalist
DX: S32.592A Other specified fracture of left pubis, initial encounter for closed fracture (principal); E11.9 Type 2 diabetes mellitus without complications; I10 Essential (primary) hypertension; W01.0XXA Fall on same level from slipping, tripping and stumbling without subsequent striking against object, initial encounter; Y92.098 Other place in other non-institutional residence as the place of occurrence of the external cause; M81.0 Age-related osteoporosis without current pathological fracture; R07.89 Other chest pain; E78.5 Hyperlipidemia, unspecified; Z79.84 Long term (current) use of oral hypoglycemic drugs; Z87.11 Personal history of peptic ulcer disease
CPT/HCPCS: 71010; 73502; 80053; 82948; 85025; 85610; 85730; 96374; G0378; J1815; J1885; J2270; J2405